=== PATIENT | female | born 1990 | race African-American/Black ===

== ENCOUNTER 2016-10-10 12:53 | Emergency (ER) | payer OTHER ==
[~2016-10-10] VITALS: Ht 182.9 cm; Wt 86.2 kg
[2016-10-10] MEDS ORDERED: Tylenol #3 tab (300mg/30mg) ORAL ONE (13:15)
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
[2016-10-10] MEDS ORDERED: ACETAMINOPHEN-1 EAC1 ORAL (13:16)
[2016-10-10 13:49] VITALS: BP 120/82
--- NOTE | 2016-10-10 13:52 | Diagnostic Imaging Report ---
Indication: PAIN Technique: One view of the chest Comparison: none Findings: Lungs and pleural spaces are clear. Heart size is normal. Impression: No acute process
--- NOTE | 2016-10-12 16:32 | Cardiology Report ---
APPROVED REPORT EKG Measurement Heart [id number] Normal sinus rhythm Normal ECG
== END 2016-10-10 13:55 | disposition home or self-care (01) ==
LOC: EMR 13:25
DX: R07.89 Other chest pain (principal); J45.909 Unspecified asthma, uncomplicated
CPT/HCPCS: 71010; 93005; 99283

== ENCOUNTER 2016-11-07 03:31 | Emergency (ER) | payer OTHER ==
[~2016-11-07] VITALS: Ht 182.9 cm; Wt 81.6 kg
[~2016-11-07 03:31] MED LIST: ACETAMINOPHEN-1 EAC1 ORAL
[2016-11-07 03:46] VITALS: BP 119/79
[2016-11-07] MEDS ORDERED: Albuterol ud Inhalation HHN ONE (04:00)
--- NOTE | 2016-11-07 04:04 | Emergency Room Report ---
History of Present Illness General Chief Complaint: Asthma Source: Patient Present Illness HPI 26 YO F presents with chest tightness, pain that started while running and "working out" at gym at 3am. Pain not worse with breathing. No radiating of pain. No cough, fever/chills, muscle aches. States childhood history of exercise induced asthma. Denies smoking, drug use. Doesnt currently "have asthma." Patient seen in ED 1 month prior for similar complaint. ECG and CXR done were reassuring. Patient DCed with T#3 at the time. Allergies: Coded Allergies: No Known Allergies (Unverified , 10/10/16) Patient History Past Medical History: none Past Surgical History: none Pertinent Family History: none Social History: Denies: alcohol use, drug use, smoking Last Menstrual Period: A WK AGO Now: No Immunizations: UTD Reviewed Nursing Documentation: PMH: Agreed, PSxH: Agreed Nursing Documentation-PMH Hx Asthma: Yes Review of Systems All Other Systems: negative except mentioned in HPI Physical Exam Vital Signs Date Time Temp Pulse Resp B/P Pulse Ox O2 Delivery O2 Flow Rate FiO2 11/07/16 03:33 97.3 77 17 128/73 100 Room Air Sp02 EP Interpretation: reviewed General Appearance: normal inspection, well appearing, no apparent distress, alert, GCS 15, non-toxic Head: normocephalic, atraumatic Eyes: bilateral eye EOMI, bilateral eye PERRL ENT: normal ENT inspection, hearing grossly normal, normal voice Neck: normal inspection, full range of motion, supple, no bony tend Respiratory: normal inspection, lungs clear, normal breath sounds, no respiratory distress, no retraction, no accessory muscle use, no wheezing, speaking full sentences Cardiovascular #1: regular rate, rhythm, no edema Gastrointestinal: normal inspection, normal bowel sounds, non tender, soft, no guarding, no hernia Genitourinary: no CVA tenderness Musculoskeletal: normal inspection, back normal, normal range of motion, [place]' s Sign negative Neurologic: normal inspection, alert, oriented x3, responsive, 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 However given 2nd visit in month, will check D-dimer ECG today is NSR, no ischemia. Will also check troponin to eval for myocarditis /pericarditis, along with basic labs and CXR EKG Diagnostic Results Rate: normal Rhythm: NSR ST Segments: no acute changes ASA given to the pt in ED: No Rhythm Strip Diag. Results EP Interpretation: yes Rate: 69 Rhythm: NSR, no PVC's, no ectopy Chest X-Ray Diagnostic Results EP Interpretation: Yes Findings: no consolidation, no effusion, no pneumothorax, no acute cardiopulmonary disease Number of Views: 1 Reevaluation Time: 04:57 Last Vital Signs Date Time Temp Pulse Resp B/P Pulse Ox O2 Delivery O2 Flow Rate FiO2 11/07/16 03:46 72 17 Room Air 11/07/16 03:46 97.3 119/79 100 Status: improved Reevaluation Impression Labs: H&H stable. No leuks. Troponin 0. Mild AMELIE. D-dimer negative. ECG is NSR. No ischemia. A: - Unlikely PE given no risk factors and negative D-dimer. - Unlikely ACS given symptoms for >1 month, neg troponin, normal ECG; also unlikley myocardiits/pericardiits given normal troponin - Possibly exercise induced asthma, adult onset asthma. Improved with albuterol here. Will Rx ventolin, recommend PMD followup for PFTs DC home Disposition: HOME, SELF-CARE Scripts Albuterol Sulfate (VENTOLIN HFA) 18 Gm Hfa.aer.ad 2 PUFFS INH EVERY 6 HOURS for chest tightness, SOB, #18 GM 0 Refills Prov: SHARONDA HERNÁNDEZ M.D. 11/07/16 Referrals: NOT CHOSEN ADARSH/,REFERRING (PCP) SHARONDA HERNÁNDEZ M.D. Nov 07, 2016 04:04
[2016-11-07 04:16] LABS: BASOPHILS % (AUTO) 1.5 % (0.0-2.0); EOSINOPHILS % (AUTO) 1.9 % (0.0-3.0); LYMPHOCYTES % (AUTO) 48.6 % (20.0-45.0); MEAN CORPUSCULAR HEMOGLOBIN 31.2 PG (27.0-31.0); MEAN CORPUSCULAR HGB CONC 35.3 G/DL (32.0-36.0); MEAN CORPUSCULAR VOLUME 88 FL (80-99); MEAN PLATELET VOLUME 9.1 FL (6.5-10.1); MONOCYTES % (AUTO) 7.2 % (1.0-10.0); NEUTROPHILS % (AUTO) 40.9 % (45.0-75.0); PLATELET COUNT 265 K/UL (150-450); RED BLOOD COUNT 4.45 M/UL (4.20-5.40); WHITE BLOOD COUNT 5.1 K/UL (4.8-10.8)
[2016-11-07 04:35] LABS: ALANINE AMINOTRANSFERASE 14 U/L (3-33); ALBUMIN/GLOBULIN RATIO 1.7 (1.0-2.7); ANION GAP 13 (5-15); ASPARTATE AMINO TRANSFERASE 19 U/L (5-40); CALCIUM 9.2 mg/dL (8.6-10.2); CARBON DIOXIDE 26 mEQ/L (20-30); CHLORIDE 100 mEQ/L (98-107); CREATININE 1.2 mg/dL (0.5-0.9); GLOMERULAR FILTRATION RATE > 60 mL/min (>60); HEMOLYSIS 7; POTASSIUM 3.6 mEQ/L (3.4-4.9); SODIUM 139 mEQ/L (135-145); TOTAL PROTEIN 6.4 g/dL (6.6-8.7)
[2016-11-07 04:53] LABS: TROPONIN I < 0.30 ng/mL (<=0.30)
[2016-11-07] MEDS ORDERED: VENTOLIN HFA18 GM INH (04:53)
[2016-11-07 04:57] VITALS: BP 113/57
[2016-11-07] MEDS ORDERED: Ketorolac 30mg Inj IV ONE (05:00)
[2016-11-07] MEDS ORDERED: LR 1000ml 1,000 ML IV SCH (05:00)
[2016-11-07] MEDS ORDERED: Oxycodone/Acetaminophen 5-325 ORAL ONE (05:00)
[2016-11-07 05:38] VITALS: BP 112/58
[2016-11-07 05:40] VITALS: BP 112/58
[2016-11-07 06:31] LABS: CKMB 1.7 ng/mL (< 3.8)
--- NOTE | 2016-11-07 12:04 | Diagnostic Imaging Report ---
Indication: Chest pain Technique: Single portable AP view of the chest. Findings: Comparison: 10/10/2016 The bones and extra pulmonary soft tissues, cardiomediastinal silhouette, pulmonary vasculature and parenchyma, and pleural surfaces remain unremarkable. IMPRESSION: Negative portable AP chest, unchanged.
--- NOTE | 2016-11-07 13:43 | Cardiology Report ---
APPROVED REPORT EKG Measurement Heart [id number] Normal sinus rhythm Normal ECG
== END 2016-11-07 05:40 | disposition home or self-care (01) ==
LOC: EMR 03:49
DX: R07.89 Other chest pain (principal); J45.909 Unspecified asthma, uncomplicated
CPT/HCPCS: 36415; 71010; 80053; 82550; 82553; 84484; 85025; 85379; 93005; 94640; 94664; 96374; 99284; J7120

== ENCOUNTER 2017-09-07 00:09 | Emergency (ER) | payer OTHER ==
[~2017-09-07] VITALS: Ht 182.9 cm; Wt 81.6 kg
[~2017-09-07 00:09] MED LIST changes: +VENTOLIN HFA18 GM INH
[2017-09-07] MEDS ORDERED: NKM (00:17)
[2017-09-07 00:45] VITALS: BP 131/77
--- NOTE | 2017-09-07 02:01 | Emergency Room Report ---
History of Present Illness General Chief Complaint: Chest Pain Source: Patient Present Illness Allergies: Coded Allergies: No Known Allergies (Unverified , 10/10/16) Patient History Last Menstrual Period: last week Now: No Nursing Documentation-[facility] Past Medical History: No History, Except For Hx Asthma: Yes Physical Exam Vital Signs Date Time Temp Pulse Resp B/P (MAP) Pulse Ox O2 Delivery O2 Flow Rate FiO2 09/07/17 00:12 97.9 68 16 131/77 100 Room Air Medical Decision Making Diagnostic Impression: Primary Impression: Chest pain ER Course patient left without being seen Last Vital Signs Date Time Temp Pulse Resp B/P (MAP) Pulse Ox O2 Delivery O2 Flow Rate FiO2 09/07/17 00:45 97.9 16 131/77 100 Room Air 09/07/17 00:12 68 Status: unchanged Disposition: LEFT W/OUT BEING SEEN Condition: Stable Referrals: NOT CHOSEN ADARSH/,REFERRING (PCP) CHRISSY ESCOBEDO M.D. Sep 07, 2017 02:01
== END 2017-09-07 00:45 | disposition home or self-care (01) ==
LOC: EMR 00:25
DX: R07.9 Chest pain, unspecified (principal); J45.909 Unspecified asthma, uncomplicated
CPT/HCPCS: 99281

== ENCOUNTER 2018-02-26 21:06 | Emergency (ER) | payer OTHER ==
[~2018-02-26] VITALS: Ht 182.9 cm; Wt 74.8 kg
[~2018-02-26 21:06] MED LIST changes: +NKM
[2018-02-26 21:26] VITALS: BP 121/98
[2018-02-26] MEDS ORDERED: LORazepam 1mg tab ORAL ONE (21:45)
--- NOTE | 2018-02-26 22:09 | Emergency Room Report ---
History of Present Illness General Chief Complaint: Chest Pain Source: Patient Present Illness HPI 27-year-old female with no medical problems, presents with chest pain for about 10 minutes prior to arrival, she reports it was nonexertional, sharp, nonradiating, localized to the anterior chest wall, not respirophasic, reports she's had in the past and had normal workups. She does admit to being very stressed out and feeling like she may be having a panic attack. She denies OCP use, recent travel, leg pain, leg swelling, hemoptysis, syncope. Allergies: Coded Allergies: No Known Allergies (Unverified , 10/10/16) Patient History Past Medical History: see triage record Last Menstrual Period: 01/26/18 Now: No : 0 Para: 0 Reviewed Nursing Documentation: PMH: Agreed; PSxH: Agreed Nursing Documentation-PMH Past Medical History: No History, Except For Hx Asthma: Yes Review of Systems All Other Systems: negative except mentioned in HPI Physical Exam Vital Signs Date Time Temp Pulse Resp B/P (MAP) Pulse Ox O2 Delivery O2 Flow Rate FiO2 02/26/18 21:12 98.4 99 20 121/98 96 Room Air 98.4 Sp02 EP Interpretation: reviewed, normal General Appearance: no apparent distress, alert, non-toxic Head: normocephalic Eyes: bilateral eye normal inspection, bilateral eye PERRL, bilateral eye EOMI ENT: normal ENT inspection, hearing grossly normal, normal pharynx, no angioedema, normal voice, moist mucus membranes Neck: normal inspection, full range of motion, supple, supple/symm/no masses Respiratory: chest non-tender, lungs clear, normal breath sounds, chest symmetrical, palpation of chest normal Cardiovascular #1: normal peripheral pulses, regular rate, rhythm Cardiovascular #2: 2+ radial (R), 2+ radial (L) Gastrointestinal: normal inspection, non tender, soft, no mass, no guarding, no rebound Rectal: deferred Genitourinary: normal inspection, no CVA tenderness Musculoskeletal: back normal, gait/station normal, normal range of motion, non- tender, no calf tenderness Neurologic: alert, responsive, 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 EKG normal, patient was given Ativan here today with improvement in symptoms, history and physical benign and reassuring. She refuses lab tests and x-rays, however I also do not feel that she absolutely needs himself will not request that she sign out gets medical advice. Radial as well as dorsalis pedis pulses, do not suspect anything serious, she also has negative Homans sign. She does not have a primary care doctor, and I did recommend she see one. She has had an echocardiogram done in the past as well, so it seems to me that she has had a very thorough workup and everything is reassuring. Recommend PMD f/u. EKG Diagnostic Results EKG Time: 21:06 EP Interpretation: No ST-T segment changes no T-wave inversions, no [id number] Rate: normal Rhythm: NSR ST Segments: no acute changes ASA given to the pt in ED: No Rhythm Strip Diag. Results Rhythm Strip Time: 21:56 EP Interpretation: yes Rate: 80 Rhythm: NSR, no PVC's, no ectopy Last Vital Signs Date Time Temp Pulse Resp B/P (MAP) Pulse Ox O2 Delivery O2 Flow Rate FiO2 02/26/18 21:26 110 20 Room Air 02/26/18 21:26 98.4 121/98 96 98.4 Disposition: HOME, SELF-CARE Condition: Stable Referrals: NOT CHOSEN ADARSH/,REFERRING (PCP) GERSON TORREZ M.D Feb 26, 2018 22:09
[2018-02-26] MEDS ORDERED: IBUPROFEN600 MG ORAL (22:10)
[2018-02-26 22:33] VITALS: BP 118/88
[2018-02-26 22:35] VITALS: BP 118/88
--- NOTE | 2018-03-03 15:31 | Cardiology Report ---
APPROVED REPORT EKG Measurement Heart [id number] [place] 142P-7 [id number] Normal sinus rhythm Normal ECG
== END 2018-02-26 22:35 | disposition home or self-care (01) ==
LOC: EMR 21:39
DX: R07.89 Other chest pain (principal); F41.9 Anxiety disorder, unspecified; J45.909 Unspecified asthma, uncomplicated
CPT/HCPCS: 93005; 99283

== ENCOUNTER 2020-03-13 19:53 | Emergency (ER) | payer OTHER ==
[~2020-03-13] VITALS: Ht 182.9 cm; Wt 72.6 kg
[~2020-03-13 19:53] MED LIST changes: +IBUPROFEN600 MG ORAL
[2020-03-13 20:00] VITALS: BP 126/71
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
--- NOTE | 2020-03-13 20:11 | NUR ---
ED Nurse Note: PT WENT FOR CT
--- NOTE | 2020-03-13 20:35 | NUR ---
ED Nurse Note: pt back from ct
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
[2020-03-13] MEDS ORDERED: Tetanus/Diptheria/Pertussis IM ONE (22:45)
[2020-03-13] MEDS ORDERED: Lidocaine 1% 10mg/ml/EPI 0.01mg/ml 30ml INJ ONE (22:45)
--- NOTE | 2020-03-13 22:45 | NUR ---
ED Nurse Note: [employer] AT BEDSIDE
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
[2020-03-13] MEDS ORDERED: IBUPROFEN600 M1 ORAL (23:24)
[2020-03-13] MEDS ORDERED: CEPHALEXIN500 MG ORAL (23:24)
[2020-03-13 23:30] VITALS: BP_SYST 124; BP_SYST 126; BP_DIAS 62; BP_DIAS 71
--- NOTE | 2020-03-13 23:30 | NUR ---
ER DISCHARGE NOTE: Patient is cleared to be discharged per ERMD, pt is aox4, on room air, with stable vital signs. pt was given dc and prescription instructions, pt was able to verbalize understanding, pt id band removed without complications. pt is able to ambulate with steady gait. pt took all belongings.
== END 2020-03-13 23:30 | disposition home or self-care (01) ==
LOC: EMR 20:15
DX: S09.90XA Unspecified injury of head, initial encounter (principal); S01.81XA Laceration without foreign body of other part of head, initial encounter; W20.8XXA Other cause of strike by thrown, projected or falling object, initial encounter; Y92.9 Unspecified place or not applicable
CPT/HCPCS: 10060; 12013; 70450; Z7502; 99284

== ENCOUNTER 2020-03-27 15:21 | Emergency (ER) | payer OTHER ==
[~2020-03-27] VITALS: Ht 180.3 cm; Wt 74.8 kg
[~2020-03-27 15:21] MED LIST changes: +CEPHALEXIN500 MG ORAL; +IBUPROFEN600 M1 ORAL
[2020-03-27 15:28] VITALS: BP 107/60
--- NOTE | 2020-03-27 15:37 | Emergency Room Report ---
History of Present Illness General Chief Complaint: Wound Recheck/Suture Removal Source: Patient Present Illness HPI 29 Yo female presents to the ED c/o having sutures in the forehead/scalp area that need to be removed s/p wound closure. Pt. has sutures placed 2 weeks ago. She denies pain, erythema, discharge or bleeding. Pt. reports she has not had any follow up. She reports soft tissues are still swollen. Allergies: Coded Allergies: No Known Allergies (Unverified , 10/10/16) COVID-19 Screening Contact w/high risk pt: No Recent Travel to affected area: No Experienced COVID-19 symptoms?: No COVID-19 Testing performed CONFERENCE CENTER MANAGER: No Patient History Past Medical History: see triage record Past Surgical History: none Pertinent Family History: none Last Menstrual Period: 3 weeks ago Now: No Reviewed Nursing Documentation: PMH: Agreed Nursing Documentation-PMH Past Medical History: No Stated History Hx Cardiac Problems: No Hx Hypertension: No Hx Pacemaker: No Hx Asthma: Yes Hx COPD: No Hx Diabetes: No Hx Cancer: No Hx Gastrointestinal Problems: No Hx Dialysis: No History Of Psychiatric Problem: No Hx Neurological Problems: No Hx Cerebrovascular Accident: No Hx Seizures: No Review of Systems All Other Systems: negative except mentioned in HPI Physical Exam Vital Signs Date Time Temp Pulse Resp B/P (MAP) Pulse Ox O2 Delivery O2 Flow Rate FiO2 03/27/20 15:28 97.9 96 15 107/60 (76) 99 Room Air Sp02 EP Interpretation: reviewed, normal General Appearance: no apparent distress, alert, GCS 15, non-toxic Head: normocephalic, atraumatic, other - healed laceration of the forehead/ scalp area. Eyes: bilateral eye normal inspection, bilateral eye PERRL ENT: hearing grossly normal, normal voice Respiratory: lungs clear, normal breath sounds, speaking full sentences Cardiovascular #1: regular rate, rhythm Musculoskeletal: normal range of motion, gait/station normal, non-tender Neurologic: alert, motor strength/tone normal, oriented x3, sensory intact, responsive, speech normal Psychiatric: judgement/insight normal Skin: wd healing/no infection noted - healed laceration of the forehead/scalp area. no infection noted. no erythema. Medical Decision Making PA Attestation Dr. De Los Santos Is my supervising Physician whom patient management has been discussed with. Diagnostic Impression: Primary Impression: Encounter for removal of sutures ER Course 29 Yo female presents to the ED c/o having sutures in the forehead/scalp area that need to be removed s/p wound closure. Pt. has sutures placed 2 weeks ago. She denies pain, erythema, discharge or bleeding. Pt. reports she has not had any follow up. She reports soft tissues are still swollen. Ddx considered but are not limited to laceration, tendon injury, cellulitis, dehiscence. Vital signs: are WNL, pt. is afebrile H&PE are most consistent with: healed laceration of the forehead/scalp area. ORDERS: none required at this time, the diagnosis is clinical ED INTERVENTIONS: - 5 Sutures removed. DISCHARGE: At this time pt. is stable for d/c to home. Will provide printed patient care instructions, and any necessary prescriptions. Care plan and follow up instructions have been discussed with the patient prior to discharge. Last Vital Signs Date Time Temp Pulse Resp B/P (MAP) Pulse Ox O2 Delivery O2 Flow Rate FiO2 03/27/20 15:28 97.9 96 15 107/60 (76) 99 Room Air Status: improved Disposition: HOME, SELF-CARE Condition: Stable Scripts Emollient Combination No.46 (MEDERMA) 20 Gm Cream..g. 1 APPLIC TP TID, #20 GM Prov: Jessica Matson 03/27/20 Referrals: [facility] + [facility] Patient Instructions: Suture Removal, Care After Additional Instructions: Take medications as directed. Follow up with a Primary Care Provider in 3-5 days, even if your symptoms have resolved. Return sooner to ED if new symptoms occur, or current symptoms become worse. - Please note that this Emergency Department Report was dictated using [employer] director technology software, occasionally this can lead to erroneous entry secondary to interpretation by the dictation equipment. Jessica Matson Mar 27, 2020 15:37
[2020-03-27] MEDS ORDERED: MEDERMA20 GM TP (15:52)
[2020-03-27 15:55] VITALS: BP 107/60
== END 2020-03-27 15:55 | disposition home or self-care (01) ==
LOC: EMR 15:51
DX: Z48.02 Encounter for removal of sutures (principal)
CPT/HCPCS: 99281

== ENCOUNTER 2020-05-22 01:52 | Emergency (ER) | payer OTHER ==
[~2020-05-22] VITALS: Ht 180.3 cm; Wt 74.8 kg
[~2020-05-22 01:52] MED LIST changes: +MEDERMA20 GM TP
--- NOTE | 2020-05-22 01:56 | NUR ---
ED Nurse Note: Patient not in waiting room
[2020-05-22 02:15] VITALS: BP 118/72
--- NOTE | 2020-05-22 02:15 | NUR ---
ED Nurse Note: patient walked into ED c/o 06/16 abdominal pain onset this morning, patient describes the pain as a crampy pain. patient presents to the ED vomiting and nauseas. states that shes also had multiple amounts of watery diarrhea prior to arrival. patient had vomitted twice upon arrival with contents being clear. patient placed in gurney. IV started on right AC 20 gauge. ERMD at bedside. will give medications as ordered
--- NOTE | 2020-05-22 02:22 | Emergency Room Report ---
History of Present Illness General Chief Complaint: Abdominal Pain Source: Patient Present Illness HPI This a 29-year-old female with no past medical history. She presents with triply abdominal pain with nausea vomiting and diarrhea. Onset this morning. Pain is sharp and crampy. Pain is diffuse in nature. Pain is 8 out of 10. Vomiting is nonbloody nonbilious. Diarrhea is watery. No fever chills. Never had this problem before. Nothing made it better. Nothing made it worse. Unable to keep anything down. Allergies: Coded Allergies: No Known Allergies (Unverified , 10/10/16) COVID-19 Screening Contact w/high risk pt: No Recent Travel to affected area: No Experienced COVID-19 symptoms?: No COVID-19 Testing performed CLINICAL NURSING INSTRUCTOR: No Patient History Past Medical History: see triage record, old chart reviewed Past Surgical History: none Pertinent Family History: none Last Menstrual Period: Now: No : 0 Para: 0 Immunizations: other Reviewed Nursing Documentation: PMH: Agreed; PSxH: Agreed Nursing Documentation-PMH Past Medical History: No Stated History Hx Cardiac Problems: No Hx Hypertension: No Hx Pacemaker: No Hx Asthma: Yes Hx COPD: No Hx Diabetes: No Hx Cancer: No Hx Gastrointestinal Problems: No Hx Dialysis: No Hx Neurological Problems: No Hx Cerebrovascular Accident: No Hx Seizures: No Review of Systems Eye: Denies: eye pain, blurred vision ENT: Denies: ear pain, nose congestion, throat swelling Respiratory: Denies: cough, shortness of breath Cardiovascular: Denies: chest pain, palpitations Gastrointestinal: Reports: abdominal pain, diarrhea, nausea, vomiting Musculoskeletal: Denies: back pain, joint pain Skin: Denies: rash Neurological: Denies: headache, numbness Endocrine: Denies: increased thirst, increased urine Hematologic/Lymphatic: Denies: easy bruising All Other Systems: negative except mentioned in HPI Physical Exam Vital Signs Date Time Temp Pulse Resp B/P (MAP) Pulse Ox O2 Delivery O2 Flow Rate FiO2 05/22/20 01:59 98.2 55 18 128/79 (95) 99 Room Air Vitals normal Sp02 EP Interpretation: reviewed, normal General Appearance: well appearing, no apparent distress, alert Head: normocephalic, atraumatic Eyes: bilateral eye PERRL, bilateral eye EOMI ENT: hearing grossly normal, normal pharynx Neck: full range of motion, supple, no meningismus Respiratory: chest non-tender, lungs clear, normal breath sounds Cardiovascular #1: regular rate, rhythm, no murmur Gastrointestinal: non tender, no mass, no organomegaly, no bruit, non-distended , decreased bowel sounds Musculoskeletal: back normal, normal range of motion, gait/station normal Psychiatric: mood/affect normal Medical Decision Making Diagnostic Impression: Primary Impression: Abdominal pain Qualified Codes: R10.84 - Generalized abdominal pain Additional Impressions: Nausea vomiting and diarrhea UTI (urinary tract infection) Qualified Codes: N30.00 - Acute cystitis without hematuria ER Course This is a 29-year-old female who presents with abdominal pain with nausea vomiting diarrhea. No evidence of acute abdomen or obstruction. This could be beginning of cyclic vomiting syndrome secondary to marijuana. Could be a stomach virus or gastroenteritis. Patient felt better now. Will discharge home. CT/MRI/US Diagnostic Results CT/MRI/US Diagnostic Results : Imaging Test Ordered: CT abdomen pelvis Impression Negative per radiologist Last Vital Signs Date Time Temp Pulse Resp B/P (MAP) Pulse Ox O2 Delivery O2 Flow Rate FiO2 05/22/20 01:59 98.2 55 18 128/79 (95) 99 Room Air Status: improved Disposition: HOME, SELF-CARE Condition: Stable Scripts Hydrocodone/Acetaminophen 5-325* (HYDROCODONE/ACETAMINOPHEN 5-325*) 1 Each Tablet 1 TAB ORAL Q6H PRN for For Pain, #10 TAB 0 Refills Prov: Rk Dye MD 05/22/20 Nitrofurantoin Monohyd/M-Cryst (Nitrofurantoin [place]-Mcr 100 mg) 100 Mg Capsule 100 MG ORAL Q12H, #14 CAP Prov: Rk Dye MD 05/22/20 Ondansetron (Zofran) 4 Mg Tablet 4 MG ORAL Q6H PRN for Nausea & Vomiting, #10 TAB 0 Refills Prov: Rk Dye MD 05/22/20 Patient Instructions: Abdominal Pain, Adult Additional Instructions: Advance diet as tolerated. Follow-up with your doctor in 2 to 3 days. Return if worse. Rk Dye MD May 22, 2020 02:22
[2020-05-22] MEDS ORDERED: Morphine Sulfate 4mg/ml Inj (IV USE ONLY) IVP ONE ×2 (02:30→05:00)
[2020-05-22 02:35] LABS: HEMATOCRIT 44.1 % (37.0-47.0); HEMOGLOBIN 15.7 G/DL (12.0-16.0); MEAN CORPUSCULAR VOLUME 90 FL (80-99); PLATELET COUNT 231 K/UL (150-450); RED BLOOD COUNT 4.92 M/UL (4.20-5.40); RED CELL DISTRIBUTION WIDTH 10.9 % (11.6-14.8); WHITE BLOOD COUNT 10.2 K/UL (4.8-10.8)
--- NOTE | 2020-05-22 02:40 | NUR ---
ED Nurse Note: reminded patient the need for urine for pending tests. patient states that she is still unable to go. IV fluids infusing well.
[2020-05-22 02:50] LABS: ANION GAP 10 mmol/L (5-15); BLOOD UREA NITROGEN 12 mg/dL (7-18); CALCIUM 9.2 MG/DL (8.5-10.1); CARBON DIOXIDE 25 MMOL/L (21-32); CHLORIDE 104 MMOL/L (98-107); POTASSIUM 3.9 MMOL/L (3.5-5.1); SODIUM 139 MMOL/L (136-145)
[2020-05-22 02:54] LABS: ALANINE AMINOTRANSFERASE 28 U/L (12-78); ALBUMIN 4.4 G/DL (3.4-5.0); ALBUMIN/GLOBULIN RATIO 1.4 (1.0-2.7); ALKALINE PHOSPHATASE 51 U/L (46-116); ASPARTATE AMINO TRANSFERASE 22 U/L (15-37); BILIRUBIN,TOTAL 0.6 MG/DL (0.2-1.0)
--- NOTE | 2020-05-22 02:54 | NUR ---
ED Nurse Note: patient still unable to provide urine.
[2020-05-22 03:37] LABS: BILIRUBIN, URINE NEGATIVE (NEGATIVE); GLUCOSE, URINE (UA) NEGATIVE (NEGATIVE); KETONES,URINE 2+ (NEGATIVE); LEUKOCYTE ESTERASE ,URINE 3+ (NEGATIVE); NITRITE,URINE NEGATIVE (NEGATIVE); PH,URINE 8 (4.5-8.0); PROTEIN,URINE 2+ (NEGATIVE); UROBILINOGEN,URINE NORMAL MG/DL (0.0-1.0)
--- NOTE | 2020-05-22 03:39 | NUR ---
Nurse Note: Urine collected and sent to lab; awaiting results. Pt ambulates with steady gait. Pt calm, asleep. No episodes of vomiting after medication
[2020-05-22 03:52] LABS: APPEARANCE,URINE SLIGHTLY CLOUDY; COLOR,URINE YELLOW
--- NOTE | 2020-05-22 04:02 | NUR ---
Nurse Note: Pt back from CT; awaiting results. Pt calm, asleep, cooperative. All safety measures met; will continue to monitior.
--- NOTE | 2020-05-22 04:42 | Diagnostic Imaging Report ---
EXAM: CT Abdomen and Pelvis Without Intravenous Contrast CLINICAL HISTORY: ABD PAIN TECHNIQUE: Axial computed tomography images of the abdomen and pelvis without intravenous contrast. CTDI is 5.20 mGy and DLP is 295.80 mGy-cm. One or more of the following dose reduction techniques were used: automated exposure control, adjustment of the mA and/or kV according to patient size, use of iterative reconstruction technique. COMPARISON: No relevant prior studies available. FINDINGS: Lung bases: Unremarkable. No mass. No consolidation. Mediastinum: Small hiatal hernia. ABDOMEN: Liver: Hepatomegaly. Gallbladder and bile ducts: Unremarkable. No calcified stones. No ductal dilation. Pancreas: Unremarkable. No ductal dilation. Spleen: Small splenic lesion, probably benign. No splenomegaly. Adrenals: Unremarkable. No mass. Kidneys and ureters: No renal calculus. No evidence for obstructive uropathy. Ureters difficult to follow due to paucity of fat. Stomach and bowel: Nonspecific bowel gas pattern with mild retained stool in the right colon. Mobile cecum in the right anterior mid abdomen. No focal small bowel dilatation. No mucosal thickening. PELVIS: Appendix: Hyperdensity in the gallbladder which may reflect appendicolith. No secondary signs for appendicitis at this time. Bladder: Decompressed bladder. No stones. Reproductive: Unremarkable as visualized. ABDOMEN and PELVIS: Intraperitoneal space: Unremarkable. No free air. No significant fluid collection. Bones/joints: No acute fracture. No dislocation. Soft tissues: Absent IV and oral contrast as well as paucity of intra- abdominal fat limit evaluation. Vasculature: Unremarkable. No abdominal aortic aneurysm. Lymph nodes: Unremarkable. No enlarged lymph nodes. IMPRESSION: 1. Nonspecific bowel gas pattern. 2. No CT evidence for appendicitis. 3. Limited study due to paucity of intra-abdominal fat and absent contrast. 4. No renal or ureteral calculus. 5. Hepatomegaly.
[2020-05-22] MEDS ORDERED: cefTRIAXone 1 GM in NS 55 ML IVPB ONE (04:45)
[2020-05-22] MEDS ORDERED: ZOFRAN4 MG ORAL (04:52)
[2020-05-22] MEDS ORDERED: MACROBID100 MG ORAL (04:52)
[2020-05-22] MEDS ORDERED: HYDROCODON-ACE1 EA15 ORAL (04:52)
[2020-05-22 05:29] VITALS: BP 132/76
--- NOTE | 2020-05-22 05:32 | NUR ---
ER DISCHARGE NOTE: Patient is cleared to be discharged per ERMD. Pt is aox4, on room air, with stable vital signs. Pt was given dc and prescription instructions. Pt was able to verbalize understanding and instructed pt to follow up with primary care physican within one week. Pt id band and iv site removed without complications; stie clean and bandaged. Pt is able to ambulate with steady gait. Pt is awaiting ride from friend.
== END 2020-05-22 05:29 | disposition home or self-care (01) ==
LOC: EMR 02:22
DX: R11.2 Nausea with vomiting, unspecified (principal); R10.84 Generalized abdominal pain; R19.7 Diarrhea, unspecified; N30.00 Acute cystitis without hematuria
CPT/HCPCS: 36415; 74176; 80053; 80307; 81003; 81025; 83690; 84702; 85025; 87086; 96361; 96365; 96375; 96376; J0696; J2270; J2405; Z7502; 99284

== ENCOUNTER → 2020-10-08 | Emergency (ER) | payer OTHER ==
[~2020-10-08] VITALS: Ht 175.3 cm; Wt 70.3 kg
[~2020-10-08] MED LIST changes: +DICYCLOMINE HCL10 MG ORAL; +HYDROCODON-ACE1 EA15 ORAL; +Haloperidol 5mg/ml Inj IM ONE; +Ketorolac 30mg Inj IV ONE; +LORazepam Inj 2mg/ml 1ml IM ONE; +MACROBID100 MG ORAL; +PANTOPRAZOLE SO40 MG ORAL; +PROMETHAZINE HC25 M1 ORAL; +ZOFRAN4 MG ORAL
[2020-10-08 13:57] LABS: HEMATOCRIT 44.6 % (37.0-47.0); MEAN CORPUSCULAR VOLUME 91 FL (80-99); PLATELET COUNT 261 K/UL (150-450); RED BLOOD COUNT 4.93 M/UL (4.20-5.40); RED CELL DISTRIBUTION WIDTH 11.5 % (11.6-14.8); WHITE BLOOD COUNT 11.1 K/UL (4.8-10.8)
[2020-10-08 13:58] VITALS: BP 142/89
--- NOTE | 2020-10-08 14:00 | Emergency Room Report ---
History of Present Illness General Chief Complaint: Abdominal Pain Source: Patient Present Illness HPI 30-year-old female with history of cannabis hyperemesis and marijuana abuse here complaining of waking up this morning with multiple bouts of nonbloody emesis. Reports that she smoked marijuana yesterday and is a daily marijuana user. Denies any tobacco smoke alcohol intake or drug use. Does not really want to answer questions. Using them "I just need something strong for pain and I need help." Also complains of acid reflux and radiating chest pain. Denies diarrhea and constipation. Denies cough or congestion. Denies . Allergies: Coded Allergies: No Known Allergies (Unverified , 10/10/16) COVID-19 Screening Contact w/high risk pt: No Recent Travel to affected area: No Experienced COVID-19 symptoms?: No COVID-19 Testing performed MACHINE PACKAGING TECHNICIAN: No Patient History Past Medical History: see triage record Past Surgical History: none Pertinent Family History: none Social History: Reports: drug use - Marijuana Now: No Immunizations: UTD Reviewed Nursing Documentation: PMH: Agreed; PSxH: Agreed Nursing Documentation-PMH Past Medical History: No History, Except For Hx Cardiac Problems: No Hx Hypertension: No Hx Pacemaker: No Hx Asthma: Yes Hx COPD: No Hx Diabetes: No Hx Cancer: No Hx Gastrointestinal Problems: No Hx Dialysis: No Hx Neurological Problems: No Hx Cerebrovascular Accident: No Hx Seizures: No Review of Systems All Other Systems: negative except mentioned in HPI Physical Exam Vital Signs Date Time Temp Pulse Resp B/P (MAP) Pulse Ox O2 Delivery O2 Flow Rate FiO2 10/08/20 13:17 97.5 56 16 157/92 (113) 100 Room Air Sp02 EP Interpretation: reviewed, normal General Appearance: alert, mild distress Head: normocephalic, atraumatic Eyes: bilateral eye normal inspection, bilateral eye PERRL ENT: no angioedema Neck: supple, no meningismus, no bony tend Respiratory: no respiratory distress, no retraction, no accessory muscle use Cardiovascular #1: regular rate, rhythm, no edema Cardiovascular #2: 2+ carotid (R), 2+ carotid (L), 2+ radial (R), 2+ radial (L), 2+ dorsalis pedis (R), 2+ dorsalis pedis (L) Gastrointestinal: non tender, soft, no mass, no organomegaly, no peritonitis, no bruit, no guarding, no hernia, no pulsatile mass, no rebound Rectal: deferred Genitourinary: no CVA tenderness Musculoskeletal: back normal Neurologic: alert, motor strength/tone normal, oriented x3, sensory intact, responsive, speech normal Psychiatric: judgement/insight normal, memory normal, mood/affect normal, no suicidal/homicidal ideation Skin: no rash Lymphatic: no adenopathy Medical Decision Making PA Attestation Diagnosis and treatment plans were reviewed and discussed with my supervising physician Dr. Serna Diagnostic Impression: Primary Impression: Nausea & vomiting Additional Impression: Elevated liver enzymes ER Course 30-year-old female with history of cannabis hyperemesis and marijuana abuse here complaining of waking up this morning with multiple bouts of nonbloody emesis. Reports that she smoked marijuana yesterday and is a daily marijuana user. Denies any tobacco smoke alcohol intake or drug use. Does not really want to answer questions. Using them "I just need something strong for pain and I need help." Also complains of acid reflux and radiating chest pain. Denies diarrhea and constipation. Denies cough or congestion. Denies . Ddx considered but are not limited to: appendicitis, cholecystis, gastritis, gastroenteritis, UTI, pyelonephritis, SBO, diverticulitis, cannabis hyperemesis, complications of Vital signs: are WNL, pt. is afebrile H&PE are most consistent with: Nausea vomiting due to marijuana use, elevated liver enzymes ORDERS: Abdominal pain order set ED INTERVENTIONS: NS bolus, Phenergan, Pepcid, Toradol, Haldol and Ativan patient reported upon discharge was still vomiting Patient was given pain medication in ED, did not vomit for over 2 hours, was able to tolerate oral hydration without vomiting. Advised to stop using marijuana. Follow-up with lockstitch back maker, keep a brat diet, if worsening symptoms return to the emergency room. DISCHARGE: At this time pt. is stable for d/c to home. Will provide printed patient care instructions, and any necessary prescriptions. Care plan and follow up instructions have been discussed with the patient prior to discharge. EKG Diagnostic Results Rate: normal Rhythm: NSR ST Segments: no acute changes Other Impression No acute ST changes Chest X-Ray Diagnostic Results Chest X-Ray Diagnostic Results : Chest X-Ray Ordered: Yes # of Views/Limited/Complete: 1 View Indication: Other EP Interpretation: Yes PA Xray: Interpretation reviewed, by supervising MD, and agrees with findings. Interpretation: no consolidation, no effusion, no pneumothorax Impression: No acute disease Electronically Signed by: Mallory Zamarripa PA-C CT/MRI/US Diagnostic Results CT/MRI/US Diagnostic Results : Imaging Test Ordered: Abdominal ultrasound Impression Findings: Gallbladder is unremarkable, without stones, wall thickening, nor pericholecystic fluid. Sonographic Bar's sign is negative. Common bile duct measures 3 mm in diameter. No intrahepatic biliary ductal dilatation. Liver demonstrates normal echogenicity, no focal abnormality. Portal vein and hepatic veins are patent. Pancreas is unremarkable. Spleen is unremarkable. Left kidney measures 12 cm in length. Right kidney measures 10.4 cm length. Both kidneys demonstrate normal echogenicity. There is no hydronephrosis. No focal abnormality . Non-aneurysmal abdominal aorta . Impression: Negative Last Vital Signs Date Time Temp Pulse Resp B/P (MAP) Pulse Ox O2 Delivery O2 Flow Rate FiO2 10/08/20 13:17 97.5 56 16 157/92 (113) 100 Room Air Disposition: HOME, SELF-CARE Condition: Stable Scripts Dicyclomine Hcl* (DICYCLOMINE HCL*) 10 Mg Capsule 10 MG ORAL QID, #20 CAP Prov: Mallory Negrete 10/08/20 Pantoprazole* (PANTOPRAZOLE*) 40 Mg Tablet.dr 40 MG ORAL EVERY 12 HOURS for Gerd, #60 TAB Prov: Mallory Negrete 10/08/20 Promethazine Hcl* (PHENERGAN*) 25 Mg Tablet 25 MG ORAL Q6H, #30 TAB Prov: Mallory Negrete 10/08/20 Patient Instructions: Nausea and Vomiting, Adult Additional Instructions: Take medication as directed, follow-up with your primary care provider, avoid smoking marijuana, worsening symptoms return to the emergency Mallory Negrete Oct 08, 2020 14:00
[2020-10-08 14:02] LABS: ANION GAP 14 mmol/L (5-15); BLOOD UREA NITROGEN 11 mg/dL (7-18); CALCIUM 9.3 MG/DL (8.5-10.1); CARBON DIOXIDE 21 MMOL/L (21-32); CHLORIDE 106 MMOL/L (98-107); CREATININE 0.9 MG/DL (0.55-1.30); POTASSIUM 3.3 MMOL/L (3.5-5.1); SODIUM 141 MMOL/L (136-145)
[2020-10-08 14:06] LABS: ALANINE AMINOTRANSFERASE 81 U/L (12-78); ALBUMIN 4.5 G/DL (3.4-5.0); ALBUMIN/GLOBULIN RATIO 1.4 (1.0-2.7); ALKALINE PHOSPHATASE 60 U/L (46-116); ASPARTATE AMINO TRANSFERASE 278 U/L (15-37); BILIRUBIN,TOTAL 0.9 MG/DL (0.2-1.0)
--- NOTE | 2020-10-08 15:31 | Diagnostic Imaging Report ---
Indication: Right upper quadrant pain. Abnormal liver function tests Technique: White-scale and duplex images of the upper abdomen were obtained Comparison: No comparison sonograms. Reference made to prior abdomen pelvis CT 05/22/2020 Findings: Gallbladder is unremarkable, without stones, wall thickening, nor pericholecystic fluid. Sonographic Bar's sign is negative. Common bile duct measures 3 mm in diameter. No intrahepatic biliary ductal dilatation. Liver demonstrates normal echogenicity, no focal abnormality. Portal vein and hepatic veins are patent. Pancreas is unremarkable. Spleen is unremarkable. Left kidney measures 12 cm in length. Right kidney measures 10.4 cm length. Both kidneys demonstrate normal echogenicity. There is no hydronephrosis. No focal abnormality . Non-aneurysmal abdominal aorta . Impression: Negative
[2020-10-08 15:58] VITALS: BP 130/78
--- NOTE | 2020-10-08 16:08 | Diagnostic Imaging Report ---
Indication: Chest pain Technique: One view of the chest Comparison: 11/07/2016 Findings: Lungs and pleural spaces are clear. Heart size is normal. No significant change Impression: No acute process
--- NOTE | 2020-10-10 02:24 | Cardiology Report ---
APPROVED REPORT EKG Measurement Heart [id number] <Conclusion> Sinus rhythm with sinus arrhythmia with 1st degree AV block Otherwise normal ECG
== END | disposition home or self-care (01) ==
LOC: EMR 14:04
DX: R11.2 Nausea with vomiting, unspecified (principal); R74.8 Abnormal levels of other serum enzymes; F12.10 Cannabis abuse, uncomplicated; J45.909 Unspecified asthma, uncomplicated
CPT/HCPCS: 71045; 76700; 80053; 83690; 84484; 85007; 85025; 93005; 96361; 96372; 96374; 96375; 96376; G0480; J1630; J1885; J2405; J2550; J7030; S0028; Z7502; 99284